=== PATIENT | male | born 1970 | race Caucasian/White ===

== ENCOUNTER 2022-11-20 16:47 | Emergency (ER) | payer OTHER, SELFPAY ==
--- NOTE | ~2022-11-20 | CT_ITS ---
EXAMINATION: CT brain wo con DATE: 11/20/2022 19:08 INDICATION: BILATERAL UPPER AND LOWER EXTREMITY WEAKNESS X 1 DAY . TECHNIQUE: Computed tomography (CT) of the head was performed without intravenous contrast. The mA wa s adjusted according to patient size. Iterative reconstruction technique was employed. The dose-lengt h product was 605.33 mGy-cm. COMPARISON: None. FINDINGS: No acute intracranial hemorrhage or extra-axial fluid collection. No hydrocephalus, mass, or herniation. No acute ischemic infarct. Unremarkable dural venous sinus attenuation. No acute osseous abnormality. Aerated secretions, retention cysts or polyps, and mucosal thickening in the ethmoid air cells, mucos al thickening and retention cysts or polyps in the sphenoid sinuses, the remaining aerated spaces are clear. IMPRESSION: No acute intracranial process. Reviewed, dictated and finalized at location K.
[2022-11-20 17:40] VITALS: BP 147/84; PULSE 63; RESP 18; TEMP 37.1; O2SAT 97
--- NOTE | 2022-11-20 18:26 | ED.LOWEXIN ---
HPI - Extremity Injury (Lower) General Chief Complaint: Extremity Problem,Nontraumatic Stated Complaint: trouble lifting his legs;started this morning Related Data Home Medications Medication Instructions Recorded Confirmed No Home Medications 11/20/22 11/20/22 Allergies Allergy/AdvReac Type Severity Reaction Status Date / Time No Known Allergies Allergy Verified 11/20/22 18:24 Discharge Plan Discharge Prescriptions: No Action No Home Medications Follow-up/Referrals: Melly,MD Jayden [Primary Care Provider] -
--- NOTE | 2022-11-20 18:37 | ECG_ITS ---
Measurements Intervals [place] Rate: 58 P: 47 HI: 172 QRS: -7 QRSD: 105 T: 35 QT: 426 QTc: 420 Interpretive Statements SINUS BRADYCARDIA BASELINE ARTIFACT- I, II, AVR, AVL, AVF BORDERLINE ECG NO PREVIOUS ECG AVAILABLE FOR COMPARISON Electronically Signed On 11-20-2022 21:47:19 CDT by Hany Curry D.O.
--- NOTE | 2022-11-20 18:43 | ED.WEAKNESS ---
HPI - Weakness General Chief complaint: Extremity Problem,Nontraumatic Stated complaint: trouble lifting his legs;started this morning Source: patient Mode of arrival: ambulatory Limitations: no limitations History of Present Illness HPI Narrative: 52-year-old male with no significant past medical history, remote history of methamphetamine use, presents to the ER with a 1 day history of -- proximal upper and lower extremity weakness. The patient is unable to raise his arms. The patient has difficulty lifting his legs. -- Complains of muscle pain of the proximal muscles. No sensory loss. he has tingling of his extremities. No other neuro deficits. MD Complaint: generalized weakness ( Proximal muscle weakness) Onset (ago): day(s) ( started today) Duration: constant Migration: none Severity: mild Quality: tingling Relieving factors: none Exacerbating factors: none Associated symptoms: denies other symptoms Related Data Home Medications Medication Instructions Recorded Confirmed No Home Medications 11/20/22 11/20/22 Allergies Allergy/AdvReac Type Severity Reaction Status Date / Time No Known Allergies Allergy Verified 11/20/22 18:24 Review of Systems Review of Systems: All systems reviewed & are unremarkable except as noted in HPI and below Constitutional: Constitutional: Reports as per HPI and Reports no additional constitutional complaints Eyes: Eyes: Reports as per HPI and Reports no additional eye complaints ENT: Reports system reviewed and no additional complaints, except as documented and Reports as per HPI Cardiovascular: Cardiovascular: Reports as per HPI and Reports no additional cardiovascular complaints Respiratory: Respiratory: Reports as per HPI and Reports no additional respiratory complaints Gastrointestinal: Gastrointestinal: Reports as per HPI and Reports no additional gastrointestinal complaints Genitourinary: Genitourinary: Reports no additional male genitourinary complaints and Reports as per HPI Musculoskeletal: Musculoskeletal: Reports no additional musculoskeletal complaints and Reports as per HPI Comments: proximal muscle weakness Integumentary/Breasts: Skin/Breast: Reports system reviewed and no additional complaints, except as docu and Reports as per HPI Neurologic: Reports system reviewed and no additional complaints, except as documented and Reports as per HPI Psychiatric: Psychiatric: Reports no additional psychiatric complaints and Reports as per HPI Endocrine: Endocrine: Reports no additional endocrine complaints and Reports as per HPI Hematologic/Lymphatic: Hematologic/Lymphatic: Reports no additional hematologic/lymphatic complaints and Reports as per HPI Allergic/Immunologic: Allergic/Immunologic: Reports no additional allergic/immunologic complaints and Reports as per HPI Exam Const: General: no acute distress Nutritional Appearance: well nourished Orientation/consciousness: patient oriented x3 Limitations: no limitations HENMT: Head: normal to inspection Ears: external ears normal Face/Nose/Sinus: Normal external nose present Face and sinus: normal facial exam Mouth: Yes Normal oral and palatal mucosa present Throat: posterior oropharynx normal Eyes: Conjunctivae: conjunctivae normal Pupils: Equal, round and reactive pupils present EOM: EOMs intact bilaterally Direct Ophthalmoscopy: no photophobia Neck: Neck: normal visual inspection, no lymphadenopathy and no meningeal signs Chest: Chest palpation & inspection: normal inspection of the chest Resp: Effort & Inspection: normal respiratory effort Auscultation: clear to auscultation bilaterally Cardio: Rate: regular rate Rhythm: regular rhythm GI: GI Palp: Yes Soft to palpation Auscultation: normal bowel sounds Rectal Exam: normal sphincter tone : General: Yes no CVA tenderness Back/Spine/Pelvis: Back: no CVA tenderness Cervical Spine: collar present Skin: General skin exam: normal
[2022-11-20 18:52] LABS: Basophils Absolute Auto 0.12 K/mm3 (0.00-0.10); Basophils Percent Auto 0.8 % (0.0-1.0); Eosinophils Absolute Auto 1.09 K/mm3 (0.02-0.50); Eosinophils Percent Auto 7.6 % (1.0-6.0); Hematocrit 47.2 % (40.0-54.0); Hemoglobin 16.6 g/dL (14.0-18.0); Immature Granulocyte Absolute 0.05 K/mm3 (0.00-0.00); Immature Granulocyte Percent A 0.3 % (0.0-0.0); Lymphocytes Absolute Auto 5.25 K/mm3 (1.10-4.50); Lymphocytes Percent Auto 36.5 % (18.0-42.0); Mean Corpuscular HGB Conc 35.2 g/dL (32.0-36.0); Mean Corpuscular Hemoglobin 30.9 pg (27.0-31.0); Mean Corpuscular Volume 87.7 fL (78.0-102.0); Monocytes Absolute Auto 0.94 K/mm3 (0.10-0.90); Monocytes Percent Auto 6.5 % (2.0-11.0); Neutrophils Absolute Auto 6.9 K/mm3 (1.7-7.2); Neutrophils Percent Auto 48.3 % (50.0-70.0); Platelet Count Result 366 K/mm3 (150-420); Red Blood Count 5.38 M/mm3 (4.70-6.10); Red Cell Distribution Width 12.2 % (11.6-14.4); White Blood Count 14.4 K/mm3 (4.8-10.8)
[2022-11-20 19:14] LABS: Lactic Acid Reflex 1.7 mmol/L (0.4-2.0)
[2022-11-20 19:16] LABS: Alanine Aminotransferase 18 U/L (16-63); Albumin Level 3.3 g/dL (3.4-5.0); Alkaline Phosphatase 101 U/L (46-116); Anion Gap 9 mmol/L (8-16); Aspartate Amino Transferase 15 U/L (15-37); Bilirubin,Total 0.3 mg/dL (0.00-1.00); Blood Urea Nitrogen 7 mg/dL (7-18); Calcium 8.1 mg/dL (8.5-10.1); Carbon Dioxide 28 mmol/L (21-32); Chloride 105 mmol/L (98-108); Creatine Kinase 62 U/L (39-308); Estimated CRCL calculation 110 ml/min; Estimated Glomerular Filt Rate > 60; Glucose 114 mg/dL (70-99); Lipase 59 U/L (16-77); Magnesium 1.9 mg/dL (1.8-2.4); Osmolality Calculated 293 mOsm/kg (285-295); Potassium 2.6 mmol/L (3.5-5.1); Sodium 142 mmol/L (136-145); Thyroid Stimulating Hormone 0.72 uIU/mL (0.36-3.74); Total Protein 6.7 g/dL (6.4-8.2); Troponin I 10.6 ng/L (0.00-60.4)
[2022-11-20 19:17] LABS: CRP < 0.5 mg/dL (0.0-0.9)
[2022-11-20 19:36] LABS: Influenza A QL RT-PCR Negative (Negative); Influenza B QL RT-PCR Negative (Negative); SARS-CoV-2 RNA PCR Negative (Negative)
[2022-11-20 19:38] LABS: RSV RNA, RT-PCR Negative (Negative)
[2022-11-20 19:54] LABS: Erythrocyte Sedimentation Rate 2 mm/hr (0-20)
[2022-11-20] MEDS: POTASSIUM BICARBONATE 25 MEQ TABEF 50 MEQ PO ×2 (20:08→22:07)
[2022-11-20] MEDS: KCL 40 MEQ/0.9% SOD CHL 1,000 ML 250 ML IV CONT (20:08)
--- NOTE | 2022-11-20 20:54 | PC.NURSE ---
pt resting per cot. watching tv. no needs at this time. lights out for comfort. call biggs in reach.
[2022-11-20 22:58] LABS: Anion Gap 7 mmol/L (8-16); Blood Urea Nitrogen 8 mg/dL (7-18); Calcium 8.1 mg/dL (8.5-10.1); Carbon Dioxide 32 mmol/L (21-32); Chloride 105 mmol/L (98-108); Estimated CRCL calculation 97 ml/min; Estimated Glomerular Filt Rate > 60; Glucose 160 mg/dL (70-99); Osmolality Calculated 299 mOsm/kg (285-295); Potassium 3.7 mmol/L (3.5-5.1); Sodium 144 mmol/L (136-145)
--- NOTE | 2022-11-20 23:08 | PC.NURSE ---
Assumed care of pt at this time. Agree with assessment by previous shift. IV KCL remains infusing via pump w/o s/s infiltration. PT tolerating well. Remain awaiting call back from [place], [place]. Pt agreeable with transfer to any facility at this time. hospital monitor applied. SB rate of 58 with no ectopy at this time. Call light in reach. Pt voices no new needs at this time.
[2022-11-20 23:15] VITALS: BP 120/82; PULSE 59; RESP 16; O2SAT 96
[2022-11-20 23:30] VITALS: PULSE 58; RESP 19; O2SAT 96
[2022-11-20 23:45] VITALS: PULSE 54; RESP 16; O2SAT 96
[2022-11-21] VITALS: PULSE 59; RESP 17; O2SAT 96
[2022-11-21 00:01] VITALS: BP 115/81; PULSE 59; RESP 15; O2SAT 94
[2022-11-21 00:15] VITALS: PULSE 58; RESP 18; O2SAT 96
--- NOTE | 2022-11-21 00:25 | PC.NURSE ---
Pt to go to room 1163 at [place], [place].
[2022-11-21 00:26] VITALS: PULSE 60; TEMP 36.8
== END 2022-11-21 00:28 | disposition short-term general hospital (02) ==
PROVIDERS: Emergency Provider Internal Medicine Critical Care Medicine; PCP Family Medicine
DX: G72.3 Periodic paralysis (principal); M62.81 Muscle weakness (generalized); Z20.822 Contact with and (suspected) exposure to COVID-19
CPT/HCPCS: 36415; 70450; 80048; 80053; 82550; 83605; 83690; 83735; 84443; 84484; 85025; 85652; 86038; 86140; 87637; 93005; 96365; 96366; 99285; A9270

== ENCOUNTER 2022-12-17 13:02 | Emergency (ER) | payer OTHER, SELFPAY ==
[2022-12-17] VITALS (20 sets, daily range): BP systolic 123–150; BP diastolic 71–98; PULSE 58–77; RESP 17–21; TEMP 35.9; O2SAT 93–99
--- NOTE | 2022-12-17 13:12 | ED.GENADULT ---
HPI - General Adult General Chief complaint: Unspecified Stated complaint: left arm numbness and tingling; left leg pain Time Seen by Provider: 12/17/22 13:11 Source: patient Mode of arrival: ambulatory Limitations: no limitations History of Present Illness HPI narrative: 52-year-old male with a history of bilateral rotator cuff injury, sciatica has been digging 2 weeks ago. He presents with 1 week history of -- left shoulder pain and numbness radiating down the arm. He rates this as 3/10 -- left posterior thigh pain. he rates this as 4/10 No chest pain. No back pain. No neck pain. The left arm and left posterior thigh pain is not related to activity. Onset (ago): week(s) ( started 1 week ago) Location: left, upper extremity and lower extremity Radiation: non-radiation Severity: moderate Severity scale (1-10): 3 Quality: aching Pain Consistency: intermittent Relieving factors: none Exacerbating factors: movement Associated symptoms: denies other symptoms Treatments prior to arrival: none Related Data Home Medications Medication Instructions Recorded Confirmed fluoxetine 20 mg tablet 20 mg PO DAILY 12/17/22 12/17/22 Allergies Allergy/AdvReac Type Severity Reaction Status Date / Time No Known Allergies Allergy Verified 12/17/22 13:16 Review of Systems Review of Systems: All systems reviewed & are unremarkable except as noted in HPI and below Constitutional: Constitutional: Reports as per HPI and Reports no additional constitutional complaints Eyes: Eyes: Reports as per HPI and Reports no additional eye complaints ENT: Reports system reviewed and no additional complaints, except as documented and Reports as per HPI Cardiovascular: Cardiovascular: Reports as per HPI and Reports no additional cardiovascular complaints Respiratory: Respiratory: Reports as per HPI and Reports no additional respiratory complaints Gastrointestinal: Gastrointestinal: Reports as per HPI and Reports no additional gastrointestinal complaints Genitourinary: Genitourinary: Reports no additional male genitourinary complaints and Reports as per HPI Musculoskeletal: Musculoskeletal: Reports no additional musculoskeletal complaints and Reports as per HPI Comments: left shoulder pain radiating down the arm left posterior thigh pain down to the back of the knee Integumentary/Breasts: Skin/Breast: Reports system reviewed and no additional complaints, except as docu and Reports as per HPI Neurologic: Reports system reviewed and no additional complaints, except as documented and Reports as per HPI Psychiatric: Psychiatric: Reports no additional psychiatric complaints and Reports as per HPI Endocrine: Endocrine: Reports no additional endocrine complaints and Reports as per HPI Hematologic/Lymphatic: Hematologic/Lymphatic: Reports no additional hematologic/lymphatic complaints and Reports as per HPI Allergic/Immunologic: Allergic/Immunologic: Reports no additional allergic/immunologic complaints and Reports as per HPI Exam Const: General: healthy appearing Nutritional Appearance: well nourished Orientation/consciousness: patient oriented x3 Limitations: no limitations HENMT: Head: normal to inspection Ears: external ears normal Face/Nose/Sinus: Normal external nose present Face and sinus: normal facial exam Mouth: Yes Normal oral and palatal mucosa present Throat: posterior oropharynx normal Eyes: Conjunctivae: conjunctivae normal Pupils: Equal, round and reactive pupils present EOM: EOMs intact bilaterally Direct Ophthalmoscopy: no photophobia Neck: Neck: normal visual inspection, no lymphadenopathy and no meningeal signs Chest: Chest palpation & inspection: normal inspection of the chest Resp: Effort & Inspection: normal respiratory effort Auscultation: clear to auscultation bilaterally Cardio: Rate: regular rate Rhythm: regular rhythm GI: GI Palp: Yes Soft to palpation Auscultation: normal bowel sounds
--- NOTE | 2022-12-17 13:20 | ECG_ITS ---
Measurements Intervals [place] Rate: 66 P: 64 WI: 164 QRS: -16 QRSD: 88 T: 60 QT: 404 QTc: 426 Interpretive Statements SINUS RHYTHM BORDERLINE LEFTWARD AXIS OTHERWISE UNREMARKABLE ECG COMPARED TO ECG 11/20/2022 18:53:47 NO SIGNIFICANT CHANGE Electronically Signed On 12-17-2022 13:46:29 CDT by Jeff Ordonez M.D.
[2022-12-17 13:34] LABS: Basophils Absolute Auto 0.14 K/mm3 (0.00-0.10); Basophils Percent Auto 1.2 % (0.0-1.0); Eosinophils Absolute Auto 1.12 K/mm3 (0.02-0.50); Eosinophils Percent Auto 9.4 % (1.0-6.0); Hematocrit 45.5 % (40.0-54.0); Hemoglobin 15.1 g/dL (14.0-18.0); Immature Granulocyte Absolute 0.09 K/mm3 (0.00-0.00); Immature Granulocyte Percent A 0.8 % (0.0-0.0); Lymphocytes Absolute Auto 3.31 K/mm3 (1.10-4.50); Lymphocytes Percent Auto 27.8 % (18.0-42.0); Mean Corpuscular HGB Conc 33.2 g/dL (32.0-36.0); Mean Corpuscular Hemoglobin 30.6 pg (27.0-31.0); Mean Corpuscular Volume 92.1 fL (78.0-102.0); Mean Platelet Volume 8.8 fl (8.7-11.0); Monocytes Absolute Auto 0.86 K/mm3 (0.10-0.90); Monocytes Percent Auto 7.2 % (2.0-11.0); Neutrophils Absolute Auto 6.4 K/mm3 (1.7-7.2); Neutrophils Percent Auto 53.6 % (50.0-70.0); Platelet Count Result 394 K/mm3 (150-420); Red Blood Count 4.94 M/mm3 (4.70-6.10); Red Cell Distribution Width 12.8 % (11.6-14.4); White Blood Count 11.9 K/mm3 (4.8-10.8)
[2022-12-17 13:54] LABS: Alanine Aminotransferase 31 U/L (16-63); Albumin Level 3.2 g/dL (3.4-5.0); Alkaline Phosphatase 107 U/L (46-116); Anion Gap 8 mmol/L (8-16); Aspartate Amino Transferase 18 U/L (15-37); Bilirubin,Total 0.3 mg/dL (0.00-1.00); Blood Urea Nitrogen 10 mg/dL (7-18); Calcium 8.8 mg/dL (8.5-10.1); Carbon Dioxide 28 mmol/L (21-32); Chloride 102 mmol/L (98-108); Creatine Kinase 51 U/L (39-308); Estimated CRCL calculation 120 ml/min; Estimated Glomerular Filt Rate > 60; Glucose 256 mg/dL (70-99); Osmolality Calculated 294 mOsm/kg (285-295); Potassium 4.2 mmol/L (3.5-5.1); Sodium 138 mmol/L (136-145); Total Protein 6.8 g/dL (6.4-8.2); Troponin I 9.6 ng/L (0.00-60.4)
--- NOTE | 2022-12-17 15:28 | PC.NURSE ---
PT IS LYING ON STRETCHER TEXTING ON CELL PHONE WITHOUT DISTRESS. PT IS AWAITING DECISION AT THIS TIME. NAD NOTED. VSS PER MONITOR. WILL CONTINUE TO MONITOR.
--- NOTE | 2022-12-17 16:25 | PC.NURSE ---
PT UP TO RR WITHOUT DIFFICULTY, NAD NOTED. WILL CONTINUE TO MONITOR. PT IS AWAITING ERP DECISION AT THIS TIME.
[2022-12-17 16:58] LABS: Hemoglobin A1C 7.3 % (<5.7)
[2022-12-17 17:12] LABS: Appearance Urine Clear (Clear); Bilirubin Urine Negative (Negative); Blood Urine Negative (Negative); Color Urine Light Yellow (Yellow); Glucose Urine UA Trace (Negative); Ketones Urine Negative (Negative); Leukocyte Esterase Ur Negative LEU/UL (Negative); Nitrate Urine Negative (Negative); Protein Urine Negative (Negative); Specific Grav Ur 1.015 (1.010-1.020); Urobilinogen Urine 0.2 mg/dL (0.2-1.0); pH Urine 6.5 (5.0-8.0)
[2022-12-17 17:14] LABS: Add Urine Microscopic? YES; Bacteria Urine Trace /hpf; RBC Urine None seen /hpf (0-2); Squamous Epithelial Cell Urine Rare /hpf (Few); WBC Urine None seen /hpf (0-3)
--- NOTE | 2022-12-17 17:59 | PC.NURSE ---
PT DECLINES ADMISSION FOR DIABETES EDUCATION. PT REPORTS HE HAS AN APPOINTMENT WITH PMD IN 5 DAYS, STATES HE WOULD PREFER TO DISCUSS THE DIAGNOSIS WITH HIM.
== END 2022-12-17 17:55 | disposition home or self-care (01) ==
PROVIDERS: Emergency Provider Internal Medicine Critical Care Medicine; PCP Family Medicine
DX: E11.9 Type 2 diabetes mellitus without complications (principal); M79.602 Pain in left arm
CPT/HCPCS: 36415; 80053; 81001; 82550; 83036; 84484; 85025; 93005; 99284

== ENCOUNTER 2023-03-02 16:50 | Emergency (ER) | payer OTHER, SELFPAY ==
[2023-03-02 16:50] VITALS: BP 130/92; PULSE 83; RESP 18; TEMP 36.9; O2SAT 98
--- NOTE | 2023-03-02 16:55 | ED.PSYCH ---
HPI - Psych General Chief Complaint: Psychiatric Symptoms Stated Complaint: psych eval Time Seen by Provider: 03/02/23 16:54 Source: patient Mode of arrival: ambulatory Limitations: no limitations History of Present Illness HPI Narrative: 52-year-old male with a history of bilateral rotator cuff injuries status post ulnar nerve release, status post bilateral carpal diabetes mellitus with methamphetamine abuse for the past 4 months( prior history of methamphetamine abuse) has been from his house herself is children. He has been homeless for the past 5 days and has been walking around. He presents to the ER with -- severe depression -- suicidal ideation. The patient does not have a plan as yet. No prior history of suicidal attempts. MD complaint: suicidal ideation and feels depressed Onset (ago): day(s) ( Started 5 days ago) Duration: constant History of same: No Relieving factors: none Exacerbating factors: other ( his family's attitude towards him) Context: recent drug abuse and significant life stressor Associated psychiatric symptoms: depression and suicidal ideation Associated symptoms: denies other symptoms Treatments prior to arrival: none If self harm: admits thoughts of self harm Related Data Home Medications Medication Instructions Recorded Confirmed No Home Medications 03/02/23 03/02/23 Allergies Allergy/AdvReac Type Severity Reaction Status Date / Time No Known Allergies Allergy Verified 03/02/23 17:12 Review of Systems Review of Systems: All systems reviewed & are unremarkable except as noted in HPI and below Constitutional: Constitutional: Reports as per HPI and Reports no additional constitutional complaints Eyes: Eyes: Reports as per HPI and Reports no additional eye complaints ENT: Reports system reviewed and no additional complaints, except as documented and Reports as per HPI Cardiovascular: Cardiovascular: Reports as per HPI and Reports no additional cardiovascular complaints Respiratory: Respiratory: Reports as per HPI and Reports no additional respiratory complaints Gastrointestinal: Gastrointestinal: Reports as per HPI and Reports no additional gastrointestinal complaints Genitourinary: Genitourinary: Reports no additional male genitourinary complaints and Reports as per HPI Musculoskeletal: Musculoskeletal: Reports no additional musculoskeletal complaints and Reports as per HPI Integumentary/Breasts: Skin/Breast: Reports system reviewed and no additional complaints, except as docu and Reports as per HPI Neurologic: Reports system reviewed and no additional complaints, except as documented and Reports as per HPI Psychiatric: Psychiatric: Reports no additional psychiatric complaints, Reports as per HPI, Reports depression and Reports suicidal ideation Endocrine: Endocrine: Reports no additional endocrine complaints Hematologic/Lymphatic: Hematologic/Lymphatic: Reports no additional hematologic/lymphatic complaints and Reports as per HPI Allergic/Immunologic: Allergic/Immunologic: Reports no additional allergic/immunologic complaints and Reports as per HPI [facility] Family History Family History (Updated 03/02/23 @ 17:22 by Salinas Fabian MD) Other Depression Social History Social History Substance use type: methamphetamine Exam Const: General: ill appearing Orientation/consciousness: patient oriented x3 Limitations: no limitations HENMT: Head: normal to inspection Ears: external ears normal Face/Nose/Sinus: Normal external nose present Face and sinus: normal facial exam Mouth: Yes Normal oral and palatal mucosa present Throat: posterior oropharynx normal Eyes: Conjunctivae: conjunctivae normal Pupils: Equal, round and reactive pupils present EOM: EOMs intact bilaterally Direct Ophthalmoscopy: no photophobia Neck: Neck: normal visual inspection, no lymphadenopathy and no meningeal signs Chest: Ches
--- NOTE | 2023-03-02 17:12 | ECG_ITS ---
Measurements Intervals [place] Rate: 69 P: 7 ID: 144 QRS: 33 QRSD: 95 T: 59 QT: 390 QTc: 419 Interpretive Statements SINUS RHYTHM NORMAL ECG COMPARED TO ECG 12/17/2022 13:26:56 NO SIGNIFICANT CHANGES Electronically Signed On 03-03-2023 9:46:05 CDT by Rajesh Bright M.D.
--- NOTE | 2023-03-02 17:21 | PC.NURSE ---
patient evaluated again for SI risk by ED RN Vanesa. Patient states currently he does feel suicidal but has no plan to self harm nor has he ever harmed himself with intent to . In addition, patient states he has not been hospitalized for psychiatric reasons before.
[2023-03-02 17:38] LABS: Basophils Absolute Auto 0.07 K/mm3 (0.00-0.10); Basophils Percent Auto 0.5 % (0.0-1.0); Eosinophils Absolute Auto 0.54 K/mm3 (0.02-0.50); Eosinophils Percent Auto 3.5 % (1.0-6.0); Hematocrit 45.2 % (40.0-54.0); Hemoglobin 15.3 g/dL (14.0-18.0); Immature Granulocyte Absolute 0.04 K/mm3 (0.00-0.00); Immature Granulocyte Percent A 0.3 % (0.0-0.0); Lymphocytes Absolute Auto 3.68 K/mm3 (1.10-4.50); Lymphocytes Percent Auto 24.1 % (18.0-42.0); Mean Corpuscular HGB Conc 33.8 g/dL (32.0-36.0); Mean Corpuscular Hemoglobin 31.7 pg (27.0-31.0); Mean Corpuscular Volume 93.8 fL (78.0-102.0); Mean Platelet Volume 8.7 fl (8.7-11.0); Monocytes Absolute Auto 1.17 K/mm3 (0.10-0.90); Monocytes Percent Auto 7.7 % (2.0-11.0); Neutrophils Absolute Auto 9.8 K/mm3 (1.7-7.2); Neutrophils Percent Auto 63.9 % (50.0-70.0); Platelet Count Result 363 K/mm3 (150-420); Red Blood Count 4.82 M/mm3 (4.70-6.10); White Blood Count 15.3 K/mm3 (4.8-10.8)
[2023-03-02 17:43] LABS: Appearance Urine Clear (Clear); Bilirubin Urine Negative (Negative); Blood Urine Negative (Negative); Color Urine Yellow (Yellow); Glucose Urine UA Trace (Negative); Ketones Urine 3+ (Negative); Leukocyte Esterase Ur Negative LEU/UL (Negative); Nitrate Urine Negative (Negative); Protein Urine Negative (Negative)
[2023-03-02 17:47] LABS: Add Urine Microscopic? YES; Bacteria Urine Trace /hpf; Mucus Urine Moderate /lpf; RBC Urine 0-2 /hpf (0-2); WBC Urine 0-3 /hpf (0-3)
[2023-03-02 17:54] LABS: Amphetamine Screen Urine Positive (Negative); Barbiturate Screen Urine Negative (Negative); Benzodiazepines Screen Urine Negative (Negative); Cannabinoid Screen Urine Positive (Negative); Cocaine Screen Urine Negative (Negative); Methadone Screen Urine Negative (Negative); Opiate Screen Urine Negative (Negative); Phencyclidine Screen Urine Negative (Negative)
[2023-03-02 18:02] LABS: Alanine Aminotransferase 19 U/L (16-63); Albumin Level 3.4 g/dL (3.4-5.0); Alkaline Phosphatase 119 U/L (46-116); Anion Gap 5 mmol/L (8-16); Aspartate Amino Transferase 19 U/L (15-37); Blood Urea Nitrogen 18 mg/dL (7-18); Calcium 8.5 mg/dL (8.5-10.1); Carbon Dioxide 32 mmol/L (21-32); Chloride 100 mmol/L (98-108); Estimated CRCL calculation 94 ml/min; Estimated Glomerular Filt Rate > 60; Glucose 127 mg/dL (70-99); Osmolality Calculated 287 mOsm/kg (285-295); Salicylate 2.5 mg/dL (2.8-20.0); Sodium 137 mmol/L (136-145); Thyroid Stimulating Hormone 0.59 uIU/mL (0.36-3.74); Total Protein 7.1 g/dL (6.4-8.2)
[2023-03-02 18:04] LABS: Acetaminophen 0 ug/mL (10-30); Ethanol < 3 mg/dL (0-6)
[2023-03-02 18:13] LABS: Influenza A QL RT-PCR Negative (Negative); Influenza B QL RT-PCR Negative (Negative); SARS-CoV-2 RNA PCR Negative (Negative)
[2023-03-02 18:14] LABS: RSV RNA, RT-PCR Negative (Negative)
[2023-03-02 18:55] VITALS: BP 114/67; PULSE 69; RESP 16; TEMP 36.8; O2SAT 95
[2023-03-02] MEDS: POTASSIUM BICARBONATE 25 MEQ TABEF 50 MEQ PO (18:55)
--- NOTE | 2023-03-02 19:04 | PC.NURSE ---
patient report given to ANGELA Meza who is assuming care of patient at this time.
[2023-03-02 20:00] VITALS: BP 120/66; PULSE 68; RESP 16; TEMP 37.1; O2SAT 96
[2023-03-02 21:16] VITALS: BP 120/69; PULSE 81; RESP 18; O2SAT 96
[2023-03-02 22:00] VITALS: BP 118/80; PULSE 78; RESP 20; TEMP 36.6; O2SAT 100
[2023-03-02 23:16] VITALS: BP 120/80; PULSE 70; RESP 20; O2SAT 96
[2023-03-03 00:25] VITALS: BP 127/70; PULSE 70; RESP 20; O2SAT 97
[2023-03-03 03:10] VITALS: BP 128/50; PULSE 78; RESP 20; TEMP 36.6; O2SAT 100
== END 2023-03-03 03:10 | disposition short-term general hospital (02) ==
PROVIDERS: Emergency Provider Internal Medicine Critical Care Medicine; PCP Family Medicine
DX: F32.A Depression, unspecified (principal); R45.851 Suicidal ideations; F15.10 Other stimulant abuse, uncomplicated; E87.6 Hypokalemia; Z20.822 Contact with and (suspected) exposure to COVID-19
CPT/HCPCS: 36415; 80053; 80307; 81001; 84443; 85025; 87637; 93005; 99285; A9270